=== PATIENT | male | born 1975 | race Caucasian/White ===

== ENCOUNTER 2016-10-20 19:06 | Emergency (ER) | payer OTHER ==
[~2016-10-20] VITALS: Ht 188 cm; Wt 104.3 kg
[2016-10-20 19:30] VITALS: BP 161/101
[2016-10-20] MEDS ORDERED: NAPROXEN 500 MG TABLET PO STA (19:40)
[2016-10-20] MEDS ORDERED: ACETAMINOPHEN/CODEINE 300/30MG TABLET. PO ONE (19:45)
--- NOTE | 2016-10-20 19:48 | PHYS DOC ---
Past Medical History Past Medical History: No Pertinent History Past Surgical History: No Surgical History Alcohol Use: None Drug Use: None Adult General Chief Complaint Chief Complaint: FOOT INJURY PAIN [facility] HPI Patient is a 41 year old resents to the emergency department with complaints of left foot pain. He was assisting with placement of a 600 pound dock, when he states the dock struck him on the foot. He reports that the doctor did not land on the foot and denies a crushing type injury. Patient was wearing tennis shoes at the time of the incident. He was ambulatory after the incident. He reports his tetanus to be up-to-date within the last 4 years. Review of Systems Review of Systems Constitutional: Denies fever or chills [] Eyes: Denies change in visual acuity, redness, or eye pain [] HENT: Denies nasal congestion or sore throat [] Respiratory: Denies cough or shortness of breath [] Cardiovascular: No additional information not addressed in HPI [] GI: Denies abdominal pain, nausea, vomiting, bloody stools or diarrhea [] : Denies dysuria or hematuria [] Musculoskeletal: Left foot pain Integument: Denies rash or skin lesions [] Neurologic: Denies headache, focal weakness or sensory changes [] Endocrine: Denies polyuria or polydipsia [] Current Medications Current Medications Current Medications Medications (Trade) Dose Ordered Sig/[place] Start Time Stop Time Status Last Admin Dose Admin Acetaminophen/ Codeine Phosphate (Tylenol #3) 1 tab 1X ONCE 10/20/16 19:45 10/20/16 19:52 DC 10/20/16 19:45 1 TAB Naproxen (Naprosyn) 500 mg STAT STAT 10/20/16 19:40 10/20/16 19:52 DC 10/20/16 19:40 500 MG Allergies Allergies Allergies Coded Allergies Type Severity Reaction Last Updated Verified No Known Drug Allergies 10/20/16 No Physical Exam Physical Exam Constitutional: Well developed, well nourished, no acute distress, non-toxic appearance. [] Neck: Normal range of motion, no tenderness, supple, no stridor. [] Cardiovascular:Heart rate regular rhythm, no murmur [] Lungs & Thorax: Bilateral breath sounds clear to auscultation [] Back: No tenderness, no CVA tenderness. [] Extremities: Left foot exam, swelling over the dorsal aspect of the foot, superficial abrasions noted at the midfoot. Patient has diffuse tenderness without point tenderness. Neurovascular is intact distally. Left ankle exam unremarkable. Neurologic: Alert and oriented X 3, normal motor function, normal sensory function, no focal deficits noted. [] Current Patient Data Vital Signs Vital Signs Date Time Temp Pulse Resp B/P (MAP) Pulse Ox O2 Delivery O2 Flow Rate FiO2 10/20/16 19:45 18 100 Room Air 10/20/16 19:30 98.8 72 98.8 EKG EKG [] Radiology/Procedures Radiology/Procedures [][]Right foot xray reviewed by Dr. Savage, ERP. No acute yong abnormalities. Course & Med Decision Making Course & Med Decision Making DAVID< Post op shoe and crutches/instructions per nursing staff. Pertinent Labs and Imaging studies reviewed. (See chart for details) Dragon Disclaimer Dragon Disclaimer This electronic medical record was generated, in whole or in part, using a voice recognition dictation system. Departure Departure Impression: Primary Impression: Contusion of right foot Disposition: 01 HOME, SELF-CARE Condition: STABLE Referrals: UNKNOWN PCP NAME (PCP) Patient Instructions: Contusion, Crutch Use, Elastic Bandage and RICE Scripts Acetaminophen With Codeine (TYLENOL WITH CODEINE #3 TABLET) 1 Each Tablet 1 TAB PO PRN Q4HRS Y for PAIN, #20 TAB Prov: CRUZ MOCTEZUMA APRN 10/20/16 Ibuprofen (IBUPROFEN) 600 Mg Tablet 600 MG PO PRN Q6HRS Y for INFLAMMATION, #30 TAB Prov: CRUZ MOCTEZUMA APRN 10/20/16 CRUZ MOCTEZUMA APRN Oct 20, 2016 19:48
[2016-10-20] MEDS ORDERED: IBUP-1007 PO (20:26)
[2016-10-20] MEDS ORDERED: ACET-704 PO (20:26)
--- NOTE | 2016-10-21 08:27 | RAD ---
3 views left foot 10/20/2016 9:40 PM Indication: pain and swelling Comparison: None Findings: There is no fracture or dislocation identified. Articular surfaces are uninterrupted. Marked soft tissue edema about the dorsum of the foot is noted. Impression: Soft tissue edema about the dorsum of the foot without evidence of acute osseous abnormality
== END 2016-10-20 20:44 | disposition home or self-care (01) ==
LOC: ER 19:06
DX: S90.31XA Contusion of right foot, initial encounter (principal); W22.8XXA Striking against or struck by other objects, initial encounter; Y93.89 Activity, other specified; Y92.89 Other specified places as the place of occurrence of the external cause; Y99.8 Other external cause status
CPT/HCPCS: 73630; 99284